=== PATIENT | male | born 1980 | race Two or more races ===

== ENCOUNTER 2019-12-12 15:32 | Emergency (ER) | payer MEDICAID ==
[~2019-12-12] VITALS: Ht 188 cm; Wt 93.0 kg
--- NOTE | 2019-12-12 15:54 | NUR ---
TASK RN: GET SAL FROM [facility] FOR SYNCOPAL EPISODE. PT IS IN A C-COLLAR. +ETOH, FSBS [id number]. VS STABLE. PURCHASING OFFICER ON. EKG DONE. REPORT GIVEN TO ANNA. JESSIE JARAMILLO IN ROOM. CALL LIGHT IN PLACE.
[2019-12-12 16:17] LABS: PH, VENOUS 7.332 pH (7.320-7.420)
[2019-12-12 16:19] LABS: BASOPHILS # (AUTO) 0.02 x10^3/uL (0-0.1); BASOPHILS % (AUTO) 0 % (0-1); EOSINOPHILS # (AUTO) 0.07 x10^3/uL (0-0.4); EOSINOPHILS % (AUTO) 1 % (1-7); LYMPHOCYTES # (AUTO) 2.08 x10^3/uL (1-3.4); LYMPHOCYTES % (AUTO) 25 % (22-44); MD NO; MEAN CORPUSCULAR HEMOGLOBIN 28.9 pg (27.5-34.5); MEAN CORPUSCULAR HGB CONC 33.5 g/dL (33.2-36.2); MEAN CORPUSCULAR VOLUME 86.3 fL (81-97); MONOCYTES % (AUTO) 10 % (2-9); NEUTROPHILS # (AUTO) 5.44 x10^3/uL (1.8-6.8); NEUTROPHILS % (AUTO) 65 % (42-75); PLATELET COUNT 138 x10^3/uL (130-400); RED BLOOD COUNT 4.75 x10^6/uL (4.38-5.82); RED CELL DISTRIBUTION WIDTH 13.2 % (9.4-14.8)
[2019-12-12 16:30] LABS: ALANINE AMINOTRANSFERASE 43 U/L (12-78); ALBUMIN 3.2 g/dL (3.4-5.0); ANION GAP 11 mmol/L (5-15); CALCIUM 7.8 mg/dL (8.5-10.1); CHLORIDE 102 mmol/L (98-107); CREATININE 1.67 mg/dL (0.7-1.3)
[2019-12-12 16:32] LABS: ALKALINE PHOSPHATASE 90 U/L (45-117); BILIRUBIN,TOTAL 0.5 mg/dL (0.2-1.0); TOTAL PROTEIN 6.4 g/dL (6.4-8.2)
[2019-12-12 17:12] LABS: ACETONE, SERUM Trace (Negative)
[2019-12-12] MEDS ORDERED: SODIUM CHLORIDE 0.9% 1,000ML IVBOLUS ONE (17:30)
[2019-12-12] MEDS ORDERED: INSULIN REGULAR 100 UNITS/ML, 3ML VIAL IV ONE (17:30)
[2019-12-12] MEDS ORDERED: INSULIN SINGLE DOSE, ER ONE (17:37)
--- NOTE | 2019-12-12 17:44 | NUR ---
INSULIN GIVEN PER MAR. PT AWAKENS WHEN TALKED TO. PT STILL SLOW TO RESPOND TO QUESTIONS, LIKE HE HAS TO THINK ABOUT THE ANSWERS.
--- NOTE | 2019-12-12 18:26 | NUR ---
break rn- Recheck fsbs [id number]
[2019-12-12 18:27] VITALS: BP 104/59
--- NOTE | 2019-12-12 19:53 | NUR ---
REPORT GIVEN TO CHRISTIN REBOLLEDO.
--- NOTE | 2019-12-12 20:45 | NUR ---
PT STATED HE FELT BETTER AND DOESN'T WANT TO BE ADMITTED. PT IS A&O X4 AND AMBULATORY WITH STEADY GAIT. PIV REMOVED WITH TIP INTACT. PT SIGNED AMA PAPERWORK. HOSPITALIST NOTIFIED.
== END 2019-12-12 20:47 | disposition left against medical advice (07) ==
LOC: ED 20:15
DX: F10.229 Alcohol dependence with intoxication, unspecified (principal); R41.82 Altered mental status, unspecified; R55 Syncope and collapse; E11.65 Type 2 diabetes mellitus with hyperglycemia; Y90.0 Blood alcohol level of less than 20 mg/100 ml
CPT/HCPCS: 36415; 70450; 80053; 80307; 82010; 82803; 82962; 85025; 93005; 96374; 99285; J1815; J7030